=== PATIENT | female | born 1970 | race Two or more races ===

== ENCOUNTER 2019-09-06 12:32 | Emergency (ER) | payer OTHER ==
[2019-09-06 12:53] VITALS: BP 158/90; PULSE 80; TEMP 98.7; BMI 31.6
[2019-09-06] MEDS ORDERED: MECLIZINE HCL 25 MG TABLET (FP) PO ONE (13:02)
[2019-09-06] MEDS ORDERED: MECLIZINE HCL 25 MG TABLET (FP) ONE (13:04)
--- NOTE | 2019-09-06 13:11 | PDOC ---
History of Present Illness - General Chief Complaint: Ear Problem Stated Complaint: LT EAR PAIN/ DIZZNESS Time Seen by Provider: 09/06/19 12:56 History Source: Patient - History of Present Illness Timing/Duration: other Past History - Past Medical History Allergies/Adverse Reactions: Allergies Allergy/AdvReac Type Severity Reaction Status Date / Time No Known Allergies Allergy Verified 09/06/19 12:54 Home Medications: Ambulatory Orders Meclizine HCl [Antivert -] 25 mg PO QID #28 tablet 09/06/19 COPD: No - Psycho Social/Smoking Cessation Hx Smoking History: Never smoked Have you smoked in the past 12 months: No Information on smoking cessation initiated: No Hx Alcohol Use: No Drug/Substance Use Hx: No Review of Systems - Review of Systems Constitutional: No: Chills, Fever HEENTM: No: Blurred Vision Respiratory: No: Shortness of Breath Cardiac (ROS): No: Chest Pain ABD/GI: No: Nausea, Vomiting Neurological: Yes: Dizziness. No: Headache, Numbness, Weakness, Ataxia *Physical Exam - Vital Signs Last Vital Signs Temp Pulse Resp BP Pulse Ox 98.7 F 80 16 158/90 100 09/06/19 12:50 09/06/19 12:50 09/06/19 12:50 09/06/19 12:50 09/06/19 12:50 - Physical Exam General Appearance: Yes: Appropriately Dressed. No: Apparent Distress HEENT: positive: Normal Voice, Other Neck: positive: Supple Respiratory/Chest: positive: Lungs Clear, Normal Breath Sounds. negative: Respiratory Distress Cardiovascular: positive: Regular Rate, S1, S2 Integumentary: positive: Dry, Warm Neurologic: positive: extern II-XII NML intact (Mann in tact, no ataxia, no drift) , Fully Oriented, Alert, Normal Mood/Affect, Motor Strength 5/5, Responsive, Finger to Nose. negative: Facial Droop, Disoriented Medical Decision Making - Medical Decision Making 09/06/19 13:13 49-year-old female, denies any past medical history, reports "buzzing sensation " to L ear. Patient admits she has had intermittent sensation to left ear x1 year but 2 weeks ago developed intermittent sensation of the room spinning that she notices only when changing positions or moving her head. No headache, visual changes, n/v or focal weakness. Has a family history of vertigo per patient see exam M/l BPV Well cathleen and stable w/ intact neuro exam Dose of meclizine given here -Dc w/ rx for same and ENT f/u Discharge - Discharge Information Problems reviewed: Yes Clinical Impression/Diagnosis: Vertigo Condition: Stable Disposition: HOME - Additional Discharge Information Prescriptions: Meclizine HCl [Antivert -] 25 mg PO QID #28 tablet - Follow up/Referral Referrals: Wyatt Kennedy MD [Staff Physician] - - Patient Discharge Instructions Patient Printed Discharge Instructions: Benign Paroxysmal Positional Vertigo Additional Instructions: El vrtigo es un tipo de mareo que te hace sentir aleksandra si estuvieras girando, balancendose o inclinndose, o aleksandra si la habitacin se moviera a tu alrededor. Estos sentimientos van y vienen, y pueden durar segundos, horas o lee. Puede sentirse peor cuando mueve la marquis, cambia de posicin, tose o estornuda. Algunas personas con vrtigo tienen problemas para caminar. Algunas personas con vrtigo tienen nuseas y pueden vomitar. Qu causa el vrtigo? Las causas ms comunes de vrtigo incluyen: Problemas del odo interno: en el interior del odo, hay adriel pequea red de tubos que se llenan de lquido. Flotando dentro de malena fluido hay depsitos especiales de calcio. Juntos, estos tubos y depsitos reina el "sistema vestibular". Betty sistema le dice al cerebro en qu posicin se encuentra el cuerpo. Tamhailey lo ayuda a mantener el equilibrio (figura 1). Si los tubos dentro de mart odo interno se hinchan, o si reina depsitos de calcio adicionales, puede desarrollar vrtigo y problemas de equilibrio. Tambin puede tener vrtigo si la hinchazn ejerce presin sobre los nervios del odo interno. Algunas veces esta hinchazn es causada por adriel infeccin viral. Tambin hay otras causas de vrtigo y deber realizar un seguimiento con ENT para adriel evaluacin adicional. Dado el nombre y nmero del Dr. Kennedy de ENT. Por favor llame maana para hacer adriel wiley Mientras tanto, tome meclizina aleksandra se le indique. La receta fue enviada a [facility] en [place] Print Language: ICELANDIC - Post Discharge Activity
== END 2019-09-06 13:49 | disposition home or self-care (01) ==
LOC: JERFT 12:32
DX: H81.10 Benign paroxysmal vertigo, unspecified ear (principal)
CPT/HCPCS: 99282-25